=== PATIENT | male | born 1955 | race Hispanic/Latino ===

== ENCOUNTER 2021-07-07 02:25 | Emergency (ER) | payer MEDICAID ==
[~2021-07-07] VITALS: Ht 170.2 cm; Wt 56.7 kg
[~2021-07-07 02:25] MED LIST: ALPR0.255 PO; CARV6.2579 PO; CEPH500B PO; FURO40TA7 PO; HYDR25 PO; Isosorbide Mono 30MG Sr Tab PO; PANT40TA55 PO; POTA-9 PO; SPIR25TA6 PO; TRAZ-185 PO
[2021-07-07 02:52] VITALS: BP 131/95
[2021-07-07 03:32] LABS: BASOPHILS % (AUTO) 0.7 % (0.0-5.0); EOSINOPHILS % (AUTO) 1.2 % (0.0-8.0); HEMATOCRIT 37.4 % (42-54); LYMPHOCYTES % (AUTO) 44.6 % (21.0-51.0); MEAN CORPUSCULAR HEMOGLOBIN 30.6 pg (27.0-33.0); MEAN CORPUSCULAR HGB CONC 32.6 g/dL (32.0-36.0); MEAN CORPUSCULAR VOLUME 93.7 fL (79-99); MONOCYTES % (AUTO) 7.7 % (3.0-13.0); NEUTROPHILS % (AUTO) 45.5 % (40.0-77.0); PLATELET COUNT (AUTO) 140 K/uL (130-400); RED BLOOD CELL COUNT(AUTO) 3.99 MIL/uL (4.50-6.20); RED CELL DISTRIBUTION WIDTH 14.9 % (11.0-15.5); WHITE BLOOD COUNT (AUTO) 6.8 K/uL (4.8-10.8)
[2021-07-07 03:37] LABS: POTASSIUM 4.4 mmol/L (3.5-5.1)
[2021-07-07 03:49] LABS: ALBUMIN 3.2 g/dL (3.5-5.0); BILIRUBIN,TOTAL 0.6 mg/dL (0.2-1.0)
[2021-07-07 03:58] VITALS: BP 135/90
[2021-07-07 03:58] LABS: CREATININE 0.9 mg/dL (0.5-1.5)
[2021-07-07 04:04] LABS: B-TYPE NATRIURETIC PEPTIDE 3880 pg/mL (0-100)
[2021-07-07] MEDS ORDERED: LIDOCAINE HCL 2% VISCOUS 15 ML UDCUP ONE (04:06)
[2021-07-07] MEDS ORDERED: MAG/ALUM/SIMETH 30 ML UDCUP ONE (04:06)
[2021-07-07] MEDS ORDERED: FAMOTIDINE 20MG VIAL IV ONE (04:30)
[2021-07-07 05:09] VITALS: BP 123/92
[2021-07-07] MEDS ORDERED: FUROSEMIDE 40MG VIAL IV ONE (05:30)
[2021-07-08] MEDS ORDERED: ONDA4TAB10 PO (18:45)
[2021-07-08] MEDS ORDERED: FAMO-136 PO (18:45)
== END 2021-07-07 05:20 | disposition left against medical advice (07) ==
LOC: EDH 02:25
DX: I25.10 Atherosclerotic heart disease of native coronary artery without angina pectoris (principal); I50.9 Heart failure, unspecified; J90 Pleural effusion, not elsewhere classified; N28.9 Disorder of kidney and ureter, unspecified; E11.9 Type 2 diabetes mellitus without complications; Z95.0 Presence of cardiac pacemaker
CPT/HCPCS: 36415; 71045; 80053; 82550; 83880; 84484; 85025; 85730; 93005; 96374; 99285; S0028; J3490

== ENCOUNTER 2021-07-07 09:18 | Emergency (ER) | payer MEDICAID ==
[~2021-07-07] VITALS: Ht 167.6 cm; Wt 56.7 kg
[2021-07-07 09:25] VITALS: BP 146/112
[2021-07-07 09:53] LABS: EOSINOPHILS % (AUTO) 0.3 % (0.0-8.0); HEMATOCRIT 40.1 % (42-54); LYMPHOCYTES % (AUTO) 40.5 % (21.0-51.0); MEAN CORPUSCULAR HEMOGLOBIN 30.4 pg (27.0-33.0); MEAN CORPUSCULAR HGB CONC 32.2 g/dL (32.0-36.0); MEAN CORPUSCULAR VOLUME 94.4 fL (79-99); MONOCYTES % (AUTO) 7.4 % (3.0-13.0); NEUTROPHILS % (AUTO) 50.6 % (40.0-77.0); PLATELET COUNT (AUTO) 162 K/uL (130-400); RED BLOOD CELL COUNT(AUTO) 4.25 MIL/uL (4.50-6.20); RED CELL DISTRIBUTION WIDTH 15.2 % (11.0-15.5); WHITE BLOOD COUNT (AUTO) 6.1 K/uL (4.8-10.8)
[2021-07-07 10:05] LABS: CREATININE 1.2 mg/dL (0.5-1.5); POTASSIUM 4.1 mmol/L (3.5-5.1)
[2021-07-07 10:10] LABS: ALBUMIN 3.5 g/dL (3.5-5.0); BILIRUBIN,TOTAL 0.7 mg/dL (0.2-1.0); TOTAL PROTEIN, SERUM 8.9 g/dL (6.0-8.3)
[2021-07-07 10:16] LABS: APPEARANCE,URINE Clear (CLEAR); BILIRUBIN,URINE Small (NEGATIVE); COLOR,URINE Dark Yellow (YELLOW); GLUCOSE, URINE (UA) Negative (NEGATIVE); KETONES,URINE Trace mg/dL (NEGATIVE); LEUKOCYTE ESTERASE ,URINE Trace (NEGATIVE); NITRATE,URINE Negative (NEGATIVE); OCCULT BLOOD,URINE Trace (NEGATIVE); PH,URINE 5.5 (5.0-8.0); PROTEIN,URINE >=1000 mg/dL (NEGATIVE)
[2021-07-07 10:18] LABS: B-TYPE NATRIURETIC PEPTIDE 4220 pg/mL (0-100)
[2021-07-07 10:23] LABS: BACTERIA,URINE Few /HPF (None Seen); RBC,URINE 0-1 /HPF (0-1); SQUAMOUS EPITHELIAL CELL,UR None Seen /HPF (0-2)
[2021-07-07 10:30] VITALS: BP 136/96
[2021-07-07] MEDS ORDERED: FUROSEMIDE 40MG VIAL IV SCH (10:30)
[2021-07-07] MEDS ORDERED: FUROSEMIDE 40MG VIAL ONE (10:33)
[2021-07-08] MEDS ORDERED: FAMO-136 PO (18:45)
[2021-07-08] MEDS ORDERED: ONDA4TAB10 PO (18:45)
== END 2021-07-07 11:34 | disposition home or self-care (01) ==
LOC: EDH 09:18
DX: I11.0 Hypertensive heart disease with heart failure (principal); I50.9 Heart failure, unspecified; E78.5 Hyperlipidemia, unspecified; E11.9 Type 2 diabetes mellitus without complications; Z79.899 Other long term (current) drug therapy
CPT/HCPCS: 36415; 71045; 80053; 81001; 83880; 84484; 85025; 93005; 96374; 99285; J1940

== ENCOUNTER 2021-07-08 16:36 | Emergency (ER) | payer MEDICAID ==
[~2021-07-08] VITALS: Ht 172.7 cm; Wt 63.5 kg
[~2021-07-08 16:36] MED LIST changes: -ALPR0.255 PO; -CEPH500B PO; -FURO40TA7 PO; -PANT40TA55 PO; -POTA-9 PO; -TRAZ-185 PO
[2021-07-08 17:17] VITALS: BP 134/98
[2021-07-08] MEDS ORDERED: ONDANSETRON ODT 4MG TAB SL ONE (17:30)
[2021-07-08] MEDS ORDERED: FAMOTIDINE 20MG TAB PO ONE (17:30)
[2021-07-08] MEDS ORDERED: FAMO-136 PO (18:45)
[2021-07-08] MEDS ORDERED: ONDA4TAB10 PO (18:45)
[2021-07-08 18:56] VITALS: BP 129/96
== END 2021-07-08 18:58 | disposition home or self-care (01) ==
LOC: EDH 16:36
DX: R11.2 Nausea with vomiting, unspecified (principal); R10.84 Generalized abdominal pain; I11.0 Hypertensive heart disease with heart failure; I10 Essential (primary) hypertension; E11.9 Type 2 diabetes mellitus without complications; Z86.73 Personal history of transient ischemic attack (TIA), and cerebral infarction without residual deficits; E78.00 Pure hypercholesterolemia, unspecified; Z79.899 Other long term (current) drug therapy
CPT/HCPCS: 93005

== ENCOUNTER 2021-07-10 13:04 | Emergency (ER) | payer MEDICAID ==
[~2021-07-10] VITALS: Ht 170.2 cm; Wt 58.1 kg
[~2021-07-10 13:04] MED LIST changes: +FAMO-136 PO; +ONDA4TAB10 PO
[2021-07-10 13:06] VITALS: BP 120/93
[2021-07-10 13:07] VITALS: BP 120/93
== END 2021-07-10 14:53 | disposition home or self-care (01) ==
LOC: EDH 13:04
DX: I11.0 Hypertensive heart disease with heart failure (principal); I50.9 Heart failure, unspecified; F41.9 Anxiety disorder, unspecified; R06.02 Shortness of breath; E11.9 Type 2 diabetes mellitus without complications; E78.00 Pure hypercholesterolemia, unspecified; Z79.899 Other long term (current) drug therapy; Z86.73 Personal history of transient ischemic attack (TIA), and cerebral infarction without residual deficits
CPT/HCPCS: 99281

== ENCOUNTER 2021-07-13 01:33 | Inpatient (IN) | payer MEDICAID ==
[~2021-07-13] VITALS: Ht 170.2 cm; Wt 52.6 kg
[2021-07-13 02:05] VITALS: BP 122/92
[2021-07-13 02:24] LABS: ABG HCO3 22.8 mmol/L (21.0-28.0); ABG OXYGEN SATURATION 97.3 % (95.0-99.0); ABG PCO2 32 mmHg (35-48)
[2021-07-13 02:43] LABS: CARBON DIOXIDE 26 mmol/L (21-32); CHLORIDE 103 mmol/L (101-111); CREATININE 1.2 mg/dL (0.5-1.5); GLOMERULAR FILTR. RATE CALC 64 mL/min (>60); GLUCOSE,RANDOM 110 mg/dL (70-105); POTASSIUM 3.6 mmol/L (3.5-5.1); SODIUM SERUM 140 mmol/L (136-145); UREA NITROGEN, BLOOD 17 mg/dL (7-18)
[2021-07-13 02:47] LABS: ALANINE AMINOTRANSFERASE 47 U/L (12-78); ALBUMIN 2.9 g/dL (3.5-5.0); ASPARTATE AMINOTRANSFERASE 42 U/L (10-37); BILIRUBIN,TOTAL 0.7 mg/dL (0.2-1.0); CREATINE KINASE, TOTAL 45 U/L (21-232); TOTAL PROTEIN, SERUM 7.4 g/dL (6.0-8.3)
[2021-07-13 02:48] LABS: CRP QUANTITATIVE < 2.00 mg/L (0.00-9.0)
[2021-07-13 02:51] LABS: APPEARANCE,URINE Clear (CLEAR); BILIRUBIN,URINE Negative (NEGATIVE); GLUCOSE, URINE (UA) Negative (NEGATIVE); KETONES,URINE Trace mg/dL (NEGATIVE); LEUKOCYTE ESTERASE ,URINE Trace (NEGATIVE); NITRATE,URINE Negative (NEGATIVE); OCCULT BLOOD,URINE Negative (NEGATIVE); PROTEIN,URINE 300 mg/dL (NEGATIVE)
[2021-07-13 02:52] LABS: COLOR,URINE YELLOW (YELLOW)
[2021-07-13 02:59] LABS: BACTERIA,URINE Rare /HPF (None Seen); RBC,URINE 0-1 /HPF (0-1); SQUAMOUS EPITHELIAL CELL,UR None Seen /HPF (0-2)
[2021-07-13] MEDS ORDERED: BUMETANIDE 1MG/4ML VIAL IVP SCH (04:00)
[2021-07-13] MEDS ORDERED: ONDANSETRON 4MG INJ IV PRN (05:00)
[2021-07-13] MEDS ORDERED: MORPHINE 4 MG SYG IV PRN (05:00)
[2021-07-13 05:05] LABS: BASOPHILS % (AUTO) 0.6 % (0.0-5.0); EOSINOPHILS % (AUTO) 1.1 % (0.0-8.0); HEMATOCRIT 35.2 % (42-54); LYMPHOCYTES % (AUTO) 38.8 % (21.0-51.0); MEAN CORPUSCULAR HEMOGLOBIN 30.9 pg (27.0-33.0); MEAN CORPUSCULAR HGB CONC 33.2 g/dL (32.0-36.0); MEAN CORPUSCULAR VOLUME 92.9 fL (79-99); MONOCYTES % (AUTO) 6.3 % (3.0-13.0); PLATELET COUNT (AUTO) 123 K/uL (130-400); RED BLOOD CELL COUNT(AUTO) 3.79 MIL/uL (4.50-6.20); RED CELL DISTRIBUTION WIDTH 15.5 % (11.0-15.5); WHITE BLOOD COUNT (AUTO) 6.2 K/uL (4.8-10.8)
[2021-07-13] MEDS: INSULIN HUMULIN R 100 UNIT/ML 3ML SQ SCH ×4 (07:30→21:00)
[2021-07-13 08:35] VITALS: BP 138/98
[2021-07-13 08:55] VITALS: BP 128/91
[2021-07-13 09:56] LABS: CREATININE 1.3 mg/dL (0.5-1.5); POTASSIUM 3.8 mmol/L (3.5-5.1)
[2021-07-13] MEDS: HYDRALAZINE 25MG TABLET PO SCH ×3 (10:08→22:16)
[2021-07-13] MEDS: FAMOTIDINE 20MG TAB PO SCH ×2 (10:08→22:12)
[2021-07-13] MEDS: ISOSORBIDE MONO 30MG SR TAB PO SCH (10:08)
[2021-07-13] MEDS: SPIRONOLACTONE 25 MG TAB PO SCH (10:08)
[2021-07-13] MEDS: LISINOPRIL 10 MG TABLET PO SCH (10:09)
[2021-07-13] MEDS: BUMETANIDE 1MG/4ML VIAL IVP SCH ×2 (10:10→22:12)
[2021-07-13] MEDS: CARVEDILOL 6.25 MG TABLET PO SCH ×2 (10:10→22:12)
[2021-07-13 12:00] VITALS: BP 125/92
[2021-07-13 16:00] VITALS: BP 112/56
[2021-07-13 20:20] VITALS: BP 104/71
[2021-07-13 20:52] LABS: COLOR,BODY FLUID YELLOW (LT YELLOW); SPECIMENTYPE,BODY FLUID PLEURAL
[2021-07-13 20:53] LABS: APPEARANCE BODY FLUID CLEAR (CLEAR); BODY FLUID RBC 39 /cu. mm.; BODY FLUID WBC 48 /cu. mm.; TOTAL VOLUME,BODY FLUID 23 mL
[2021-07-13 21:13] LABS: BF BASOPHIL 1 %; BF LYMPHOCYTE 57 %; BF MESOTHELIAL 11 %; BF MONOCYTE 4 %
[2021-07-14] VITALS (8 sets, daily range): BP systolic 90–114; BP diastolic 50–79
[2021-07-14 04:18] LABS: BASOPHILS % (AUTO) 0.5 % (0.0-5.0); EOSINOPHILS % (AUTO) 1.4 % (0.0-8.0); HEMATOCRIT 31.1 % (42-54); LYMPHOCYTES % (AUTO) 34.8 % (21.0-51.0); MEAN CORPUSCULAR HEMOGLOBIN 30.4 pg (27.0-33.0); MEAN CORPUSCULAR HGB CONC 32.5 g/dL (32.0-36.0); MEAN CORPUSCULAR VOLUME 93.7 fL (79-99); NEUTROPHILS % (AUTO) 56.9 % (40.0-77.0); PLATELET COUNT (AUTO) 122 K/uL (130-400); RED BLOOD CELL COUNT(AUTO) 3.32 MIL/uL (4.50-6.20); RED CELL DISTRIBUTION WIDTH 15.3 % (11.0-15.5); WHITE BLOOD COUNT (AUTO) 5.5 K/uL (4.8-10.8)
[2021-07-14 04:33] LABS: CREATININE 1.4 mg/dL (0.5-1.5); MAGNESIUM 1.7 mg/dL (1.80-2.40); PHOSPHORUS 3.9 mg/dL (2.5-4.9); POTASSIUM 3.7 mmol/L (3.5-5.1); TOTAL PROTEIN, SERUM 6.3 g/dL (6.0-8.3)
[2021-07-14] MEDS: INSULIN HUMULIN R 100 UNIT/ML 3ML SQ SCH ×4 (05:49→21:00)
[2021-07-14] MEDS ORDERED: MAGNESIUM 2GM PREMIX 50ML 50 ML IV SCH (08:30)
[2021-07-14] MEDS ORDERED: KCL 20 MEQ ERTAB PO SCH (08:30)
[2021-07-14] MEDS: SPIRONOLACTONE 25 MG TAB PO SCH (09:31)
[2021-07-14] MEDS: BUMETANIDE 1MG/4ML VIAL IVP SCH (09:31)
[2021-07-14] MEDS: FAMOTIDINE 20MG TAB PO SCH ×2 (09:32→21:31)
[2021-07-14] MEDS: ISOSORBIDE MONO 30MG SR TAB PO SCH (09:32)
[2021-07-14] MEDS: CARVEDILOL 6.25 MG TABLET PO SCH ×2 (09:33→21:31)
[2021-07-14] MEDS: LISINOPRIL 10 MG TABLET PO SCH (09:33)
[2021-07-14] MEDS: FUROSEMIDE 40 MG TABLET PO SCH (18:30)
[2021-07-15 03:08] VITALS: BP 107/67
[2021-07-15] MEDS: INSULIN HUMULIN R 100 UNIT/ML 3ML SQ SCH ×4 (06:33→20:32)
[2021-07-15 06:52] LABS: BASOPHILS % (AUTO) 0.6 % (0.0-5.0); EOSINOPHILS % (AUTO) 1.3 % (0.0-8.0); HEMATOCRIT 32.7 % (42-54); LYMPHOCYTES % (AUTO) 42.4 % (21.0-51.0); MEAN CORPUSCULAR HEMOGLOBIN 30.4 pg (27.0-33.0); MEAN CORPUSCULAR HGB CONC 33.3 g/dL (32.0-36.0); MEAN CORPUSCULAR VOLUME 91.3 fL (79-99); NEUTROPHILS % (AUTO) 46.5 % (40.0-77.0); PLATELET COUNT (AUTO) 137 K/uL (130-400); RED BLOOD CELL COUNT(AUTO) 3.58 MIL/uL (4.50-6.20); WHITE BLOOD COUNT (AUTO) 5.2 K/uL (4.8-10.8)
[2021-07-15 07:08] LABS: CREATININE 1.5 mg/dL (0.5-1.5); MAGNESIUM 1.9 mg/dL (1.80-2.40); POTASSIUM 4.2 mmol/L (3.5-5.1)
[2021-07-15 07:55] VITALS: BP 128/81
[2021-07-15] MEDS: FUROSEMIDE 40 MG TABLET PO SCH ×2 (08:46→16:39)
[2021-07-15] MEDS: ISOSORBIDE MONO 30MG SR TAB PO SCH (08:48)
[2021-07-15] MEDS: CARVEDILOL 6.25 MG TABLET PO SCH ×2 (08:48→20:35)
[2021-07-15] MEDS: SPIRONOLACTONE 25 MG TAB PO SCH (08:48)
[2021-07-15] MEDS: FAMOTIDINE 20MG TAB PO SCH ×2 (08:49→20:35)
[2021-07-15] MEDS: LISINOPRIL 10 MG TABLET PO SCH (08:51)
[2021-07-15 11:45] VITALS: BP 117/76
[2021-07-15 15:45] VITALS: BP 113/73
[2021-07-15 20:04] VITALS: BP 121/78
[2021-07-15] MEDS: LACTULOSE 20 GM/30 ML UDCUP PO SCH (20:38)
[2021-07-16 00:16] VITALS: BP 107/76
[2021-07-16 04:00] VITALS: BP 106/73
[2021-07-16] MEDS: INSULIN HUMULIN R 100 UNIT/ML 3ML SQ SCH (05:36)
[2021-07-16] MEDS: ISOSORBIDE MONO 30MG SR TAB PO SCH (07:44)
[2021-07-16] MEDS: LISINOPRIL 10 MG TABLET PO SCH (07:44)
[2021-07-16] MEDS: FUROSEMIDE 40 MG TABLET PO SCH (07:44)
[2021-07-16] MEDS: SPIRONOLACTONE 25 MG TAB PO SCH (07:44)
[2021-07-16] MEDS: FAMOTIDINE 20MG TAB PO SCH (07:45)
[2021-07-16 08:00] VITALS: BP 125/89
[2021-07-16] MEDS: LACTULOSE 20 GM/30 ML UDCUP PO SCH (09:00)
[2021-07-16] MEDS: CARVEDILOL 6.25 MG TABLET PO SCH (10:34)
[2021-07-16] MEDS ORDERED: FURO40TA7 PO (10:46)
[2021-07-16 12:00] VITALS: BP 126/81
== END 2021-07-16 13:00 | disposition home or self-care (01) | DRG 194 ==
LOC: EDH 01:33 → EDHIP 04:37 → 4CH 09:16
PROVIDERS: ADMIT Internal Medicine; ATTEND Internal Medicine
PROC: 0W993ZZ Drainage of Right Pleural Cavity, Percutaneous Approach (ICD-10-PCS; principal; 2021-07-13)
DX: I11.0 Hypertensive heart disease with heart failure (principal); I42.9 Cardiomyopathy, unspecified; E11.9 Type 2 diabetes mellitus without complications; I50.43 Acute on chronic combined systolic (congestive) and diastolic (congestive) heart failure; E78.5 Hyperlipidemia, unspecified; E78.00 Pure hypercholesterolemia, unspecified; Z87.891 Personal history of nicotine dependence; Z88.8 Allergy status to other drugs, medicaments and biological substances; I25.2 Old myocardial infarction; Z79.899 Other long term (current) drug therapy; Z83.3 Family history of diabetes mellitus; Z82.49 Family history of ischemic heart disease and other diseases of the circulatory system
CPT/HCPCS: 36415; 36600; 71045; 80048; 80053; 81001; 82550; 82803; 82945; 82948; 83615; 83735; 83880; 83986; 84100; 84155; 84157; 84484; 85025; 86140; 87071; 87205; 87635; 89051; 93005; 99281; C1729; C9803; G0378; J3475; J3490

== ENCOUNTER 2021-07-29 20:54 | Inpatient (IN) | payer MEDICAID ==
[~2021-07-29] VITALS: Ht 170.2 cm; Wt 54.9 kg
[~2021-07-29 20:54] MED LIST changes: +FURO40TA7 PO; -ONDA4TAB10 PO
[2021-07-29 21:43] LABS: BASOPHILS % (AUTO) 0.8 % (0.0-5.0); EOSINOPHILS % (AUTO) 0.8 % (0.0-8.0); HEMATOCRIT 35.6 % (42-54); LYMPHOCYTES % (AUTO) 49.3 % (21.0-51.0); MEAN CORPUSCULAR HEMOGLOBIN 30.3 pg (27.0-33.0); MEAN CORPUSCULAR HGB CONC 32.9 g/dL (32.0-36.0); MEAN CORPUSCULAR VOLUME 92.2 fL (79-99); MONOCYTES % (AUTO) 7.2 % (3.0-13.0); NEUTROPHILS % (AUTO) 41.7 % (40.0-77.0); PLATELET COUNT (AUTO) 161 K/uL (130-400); RED BLOOD CELL COUNT(AUTO) 3.86 MIL/uL (4.50-6.20); RED CELL DISTRIBUTION WIDTH 16.6 % (11.0-15.5)
[2021-07-29 21:54] LABS: CREATININE 1.3 mg/dL (0.5-1.5); POTASSIUM 4.5 mmol/L (3.5-5.1)
[2021-07-29 21:58] LABS: ALBUMIN 3.5 g/dL (3.5-5.0); BILIRUBIN,TOTAL 0.6 mg/dL (0.2-1.0); TOTAL PROTEIN, SERUM 8.7 g/dL (6.0-8.3)
[2021-07-29] MEDS ORDERED: NITROGLYCERIN 1GM OINT 1 INCH/1GM TD SCH (23:00)
[2021-07-29] MEDS ORDERED: ONDANSETRON 4MG INJ IV PRN (23:00)
[2021-07-30 00:15] VITALS: BP 118/83
[2021-07-30] MEDS ORDERED: INSULIN HUMULIN R 100 UNIT/ML 3ML SQ SCH (07:30)
[2021-07-30] MEDS ORDERED: HYDRALAZINE 25MG TABLET PO SCH (09:00)
[2021-07-30] MEDS ORDERED: ISOSORBIDE MONO 30MG SR TAB PO SCH (09:00)
[2021-07-30] MEDS ORDERED: LISINOPRIL 10 MG TABLET PO SCH (09:00)
[2021-07-30] MEDS ORDERED: BUMETANIDE 1MG/4ML VIAL IVP SCH (09:00)
[2021-07-30] MEDS ORDERED: SPIRONOLACTONE 25 MG TAB PO SCH (09:00)
[2021-07-30] MEDS ORDERED: FAMOTIDINE 20MG TAB PO SCH (09:00)
== END 2021-07-30 00:45 | disposition left against medical advice (07) | DRG 194 ==
LOC: EDH 20:54 → EDHIP 20:55 → UNDOADMIN 22:55 → EDHIP 22:55 → UNDODEPER 07-30 02:34
PROVIDERS: ADMIT Internal Medicine; ATTEND Internal Medicine
DX: I11.0 Hypertensive heart disease with heart failure (principal); E11.9 Type 2 diabetes mellitus without complications; I50.9 Heart failure, unspecified; E78.5 Hyperlipidemia, unspecified; E78.00 Pure hypercholesterolemia, unspecified; I25.2 Old myocardial infarction; Z87.891 Personal history of nicotine dependence; Z83.3 Family history of diabetes mellitus; Z82.49 Family history of ischemic heart disease and other diseases of the circulatory system
CPT/HCPCS: 36415; 71045; 80053; 82150; 82550; 83690; 83735; 83880; 84484; 85025; 93005; G0378

== ENCOUNTER 2021-07-30 16:08 | Emergency (ER) | payer MEDICAID ==
[~2021-07-30] VITALS: Ht 167.6 cm; Wt 55.3 kg
[2021-07-30 16:12] VITALS: BP 132/93
[2021-07-30 17:01] LABS: BASOPHILS % (AUTO) 1.1 % (0.0-5.0); EOSINOPHILS % (AUTO) 0.6 % (0.0-8.0); HEMATOCRIT 36.8 % (42-54); LYMPHOCYTES % (AUTO) 48.8 % (21.0-51.0); MEAN CORPUSCULAR HGB CONC 32.6 g/dL (32.0-36.0); MONOCYTES % (AUTO) 7.3 % (3.0-13.0); NEUTROPHILS % (AUTO) 41.9 % (40.0-77.0); PLATELET COUNT (AUTO) 178 K/uL (130-400); RED CELL DISTRIBUTION WIDTH 16.8 % (11.0-15.5); WHITE BLOOD COUNT (AUTO) 6.3 K/uL (4.8-10.8)
[2021-07-30 17:11] LABS: CARBON DIOXIDE 27 mmol/L (21-32); CHLORIDE 99 mmol/L (101-111); CREATININE 1.3 mg/dL (0.5-1.5); GLOMERULAR FILTR. RATE CALC 58 mL/min (>60); GLUCOSE,RANDOM 114 mg/dL (70-105); POTASSIUM 4.9 mmol/L (3.5-5.1); SODIUM SERUM 135 mmol/L (136-145); UREA NITROGEN, BLOOD 30 mg/dL (7-18)
[2021-07-30 17:15] LABS: ALANINE AMINOTRANSFERASE 53 U/L (12-78); ALBUMIN 3.6 g/dL (3.5-5.0); ASPARTATE AMINOTRANSFERASE 44 U/L (10-37); BILIRUBIN,TOTAL 0.9 mg/dL (0.2-1.0); LIPASE 114 U/L (114-286); TOTAL PROTEIN, SERUM 9.1 g/dL (6.0-8.3)
[2021-07-30 17:16] LABS: CRP QUANTITATIVE < 2.00 mg/L (0.00-9.0)
[2021-07-30] MEDS ORDERED: FUROSEMIDE 40MG VIAL IV ONE (17:30)
[2021-07-30] MEDS ORDERED: AZITHROMYCIN 250 MG TABLET PO ONE (17:30)
[2021-07-30] MEDS ORDERED: CEFTRIAXONE 1G VIAL IVP ONE (17:30)
[2021-07-30 17:33] LABS: B-TYPE NATRIURETIC PEPTIDE 2710 pg/mL (0-100)
== END 2021-07-30 18:08 | disposition left against medical advice (07) ==
LOC: EDH 16:08
DX: J90 Pleural effusion, not elsewhere classified (principal); I11.0 Hypertensive heart disease with heart failure; I50.9 Heart failure, unspecified; I25.10 Atherosclerotic heart disease of native coronary artery without angina pectoris; R06.00 Dyspnea, unspecified; E78.00 Pure hypercholesterolemia, unspecified; E11.9 Type 2 diabetes mellitus without complications; J44.9 Chronic obstructive pulmonary disease, unspecified; Z79.899 Other long term (current) drug therapy; Z90.49 Acquired absence of other specified parts of digestive tract
CPT/HCPCS: 36415; 71045; 80053; 83690; 83880; 84484; 85025; 86140; 93005

== ENCOUNTER 2021-08-06 11:39 | Inpatient (IN) | payer MEDICAID ==
[~2021-08-06] VITALS: Ht 170.2 cm; Wt 58.1 kg
[2021-08-06 12:13] LABS: EOSINOPHILS % (AUTO) 0.3 % (0.0-8.0); HEMATOCRIT 34.4 % (42-54); LYMPHOCYTES % (AUTO) 31.5 % (21.0-51.0); MEAN CORPUSCULAR HEMOGLOBIN 29.4 pg (27.0-33.0); MEAN CORPUSCULAR HGB CONC 32.3 g/dL (32.0-36.0); MONOCYTES % (AUTO) 8.3 % (3.0-13.0); NEUTROPHILS % (AUTO) 58.7 % (40.0-77.0); PLATELET COUNT (AUTO) 192 K/uL (130-400); RED BLOOD CELL COUNT(AUTO) 3.78 MIL/uL (4.50-6.20); RED CELL DISTRIBUTION WIDTH 16.8 % (11.0-15.5); WHITE BLOOD COUNT (AUTO) 6.2 K/uL (4.8-10.8)
[2021-08-06 12:27] LABS: CREATININE 1.4 mg/dL (0.5-1.5); POTASSIUM 4.3 mmol/L (3.5-5.1)
[2021-08-06 12:32] LABS: ALBUMIN 3.3 g/dL (3.5-5.0); TOTAL PROTEIN, SERUM 8.2 g/dL (6.0-8.3)
[2021-08-06 12:40] LABS: B-TYPE NATRIURETIC PEPTIDE > 5000 pg/mL (0-100)
[2021-08-06] MEDS ORDERED: HYDROCODONE/ACETAMINOPHEN 5/325 MG TAB PO PRN (15:00)
[2021-08-06] MEDS ORDERED: ONDANSETRON 4MG INJ IV PRN (15:00)
[2021-08-06] MEDS ORDERED: NITROGLYCERIN 0.4 MG SL TAB SL PRN (15:00)
[2021-08-06] MEDS ORDERED: GUAIFENESIN-DM 200/20 MG 10 ML PO PRN (15:00)
[2021-08-06] MEDS ORDERED: HYDRALAZINE 20MG/ML VIAL IV PRN (15:00)
[2021-08-06] MEDS ORDERED: ACETAMINOPHEN 325 MG TAB PO PRN (15:00)
[2021-08-06] MEDS ORDERED: 0.9%NACL 100ML 200 ML ONE (15:46)
[2021-08-06] MEDS: FUROSEMIDE 40MG VIAL IV SCH (15:49)
[2021-08-06] MEDS: ZOSYN 3.375GM+NS 50ML 50 ML IV SCH ×2 (15:49→23:40)
[2021-08-06] MEDS: HYDRALAZINE 25MG TABLET PO SCH (21:58)
[2021-08-06] MEDS: FAMOTIDINE 20MG TAB PO SCH (21:58)
[2021-08-06] MEDS: CARVEDILOL 6.25 MG TABLET PO SCH (22:23)
[2021-08-07] VITALS (7 sets, daily range): BP systolic 91–127; BP diastolic 60–83
[2021-08-07] MEDS: FUROSEMIDE 40MG VIAL IV SCH (03:38)
[2021-08-07 06:08] LABS: BASOPHILS % (AUTO) 0.8 % (0.0-5.0); HEMATOCRIT 31.7 % (42-54); MEAN CORPUSCULAR HEMOGLOBIN 28.9 pg (27.0-33.0); MEAN CORPUSCULAR HGB CONC 32.5 g/dL (32.0-36.0); MEAN CORPUSCULAR VOLUME 88.8 fL (79-99); MONOCYTES % (AUTO) 7.8 % (3.0-13.0); NEUTROPHILS % (AUTO) 66.9 % (40.0-77.0); PLATELET COUNT (AUTO) 178 K/uL (130-400); RED BLOOD CELL COUNT(AUTO) 3.57 MIL/uL (4.50-6.20); RED CELL DISTRIBUTION WIDTH 16.9 % (11.0-15.5); WHITE BLOOD COUNT (AUTO) 6.6 K/uL (4.8-10.8)
[2021-08-07 06:14] LABS: B-TYPE NATRIURETIC PEPTIDE > 5000 pg/mL (0-100)
[2021-08-07 06:19] LABS: ALBUMIN 3.2 g/dL (3.5-5.0); BILIRUBIN,TOTAL 1.6 mg/dL (0.2-1.0); CREATININE 1.6 mg/dL (0.5-1.5); POTASSIUM 4.3 mmol/L (3.5-5.1); TOTAL PROTEIN, SERUM 7.9 g/dL (6.0-8.3)
[2021-08-07] MEDS: HYDRALAZINE 25MG TABLET PO SCH ×3 (09:08→20:34)
[2021-08-07] MEDS: ENOXAPARIN SODIUM 40 MG/0.4 ML SYRINGE SQ SCH (09:09)
[2021-08-07] MEDS: CARVEDILOL 6.25 MG TABLET PO SCH ×2 (09:09→20:34)
[2021-08-07] MEDS: ISOSORBIDE MONO 30MG SR TAB PO SCH (09:09)
[2021-08-07] MEDS: SPIRONOLACTONE 25 MG TAB PO SCH (09:10)
[2021-08-07] MEDS: ZOSYN 3.375GM+NS 50ML 50 ML IV SCH ×2 (13:09→20:29)
[2021-08-07] MEDS: FAMOTIDINE 20MG TAB PO SCH (20:34)
[2021-08-08 03:41] VITALS: BP 111/73
[2021-08-08] MEDS: ZOSYN 3.375GM+NS 50ML 50 ML IV SCH ×3 (04:38→20:50)
[2021-08-08 04:42] LABS: BASOPHILS % (AUTO) 0.8 % (0.0-5.0); EOSINOPHILS % (AUTO) 0.3 % (0.0-8.0); HEMATOCRIT 31.3 % (42-54); LYMPHOCYTES % (AUTO) 27.3 % (21.0-51.0); MEAN CORPUSCULAR HEMOGLOBIN 29.1 pg (27.0-33.0); MEAN CORPUSCULAR HGB CONC 32.6 g/dL (32.0-36.0); MEAN CORPUSCULAR VOLUME 89.4 fL (79-99); MONOCYTES % (AUTO) 10.4 % (3.0-13.0); NEUTROPHILS % (AUTO) 60.9 % (40.0-77.0); PLATELET COUNT (AUTO) 170 K/uL (130-400); RED CELL DISTRIBUTION WIDTH 16.9 % (11.0-15.5); WHITE BLOOD COUNT (AUTO) 7.2 K/uL (4.8-10.8)
[2021-08-08 05:03] LABS: ALBUMIN 2.9 g/dL (3.5-5.0); BILIRUBIN,TOTAL 1.4 mg/dL (0.2-1.0); CREATININE 1.6 mg/dL (0.5-1.5); POTASSIUM 3.9 mmol/L (3.5-5.1); TOTAL PROTEIN, SERUM 7.3 g/dL (6.0-8.3)
[2021-08-08 08:02] VITALS: BP 115/86
[2021-08-08] MEDS: CARVEDILOL 6.25 MG TABLET PO SCH ×2 (10:10→20:52)
[2021-08-08] MEDS: ENOXAPARIN SODIUM 40 MG/0.4 ML SYRINGE SQ SCH (10:10)
[2021-08-08] MEDS: ISOSORBIDE MONO 30MG SR TAB PO SCH (10:10)
[2021-08-08] MEDS: SPIRONOLACTONE 25 MG TAB PO SCH (10:10)
[2021-08-08] MEDS: HYDRALAZINE 25MG TABLET PO SCH ×3 (10:11→20:51)
[2021-08-08 11:23] VITALS: BP 113/65
[2021-08-08] MEDS: FUROSEMIDE 40MG VIAL IV SCH ×2 (12:40)
[2021-08-08 15:42] VITALS: BP 100/66
[2021-08-08 20:04] VITALS: BP 106/76
[2021-08-08] MEDS: FAMOTIDINE 20MG TAB PO SCH (20:51)
[2021-08-08 23:15] VITALS: BP 90/56
[2021-08-09] MEDS ORDERED: MIDODRINE HCL 5 MG TABLET PO SCH ×2 (00:50→09:00)
[2021-08-09] MEDS: FUROSEMIDE 40MG VIAL IV SCH (00:55)
[2021-08-09 03:42] VITALS: BP 101/67
[2021-08-09] MEDS: ZOSYN 3.375GM+NS 50ML 50 ML IV SCH (04:37)
[2021-08-09 05:13] LABS: BASOPHILS % (AUTO) 0.9 % (0.0-5.0); HEMATOCRIT 31.1 % (42-54); LYMPHOCYTES % (AUTO) 33.1 % (21.0-51.0); MEAN CORPUSCULAR HEMOGLOBIN 28.7 pg (27.0-33.0); MEAN CORPUSCULAR HGB CONC 31.8 g/dL (32.0-36.0); MEAN CORPUSCULAR VOLUME 90.1 fL (79-99); MONOCYTES % (AUTO) 12.3 % (3.0-13.0); NEUTROPHILS % (AUTO) 52.4 % (40.0-77.0); PLATELET COUNT (AUTO) 167 K/uL (130-400); RED BLOOD CELL COUNT(AUTO) 3.45 MIL/uL (4.50-6.20); RED CELL DISTRIBUTION WIDTH 16.8 % (11.0-15.5); WHITE BLOOD COUNT (AUTO) 5.8 K/uL (4.8-10.8)
[2021-08-09 05:37] LABS: ALBUMIN 2.6 g/dL (3.5-5.0); BILIRUBIN,TOTAL 0.6 mg/dL (0.2-1.0); CREATININE 1.7 mg/dL (0.5-1.5); POTASSIUM 3.3 mmol/L (3.5-5.1); TOTAL PROTEIN, SERUM 7.1 g/dL (6.0-8.3)
[2021-08-09 08:00] VITALS: BP 114/85
[2021-08-09] MEDS ORDERED: KCL 20 MEQ ERTAB PO SCH (10:00)
[2021-08-09 10:04] VITALS: BP 114/83
[2021-08-09] MEDS: CARVEDILOL 6.25 MG TABLET PO SCH (10:04)
[2021-08-09] MEDS: ISOSORBIDE MONO 30MG SR TAB PO SCH (10:04)
[2021-08-09] MEDS: SPIRONOLACTONE 25 MG TAB PO SCH (10:04)
[2021-08-09] MEDS: HYDRALAZINE 25MG TABLET PO SCH (10:05)
[2021-08-09] MEDS: ENOXAPARIN SODIUM 40 MG/0.4 ML SYRINGE SQ SCH (10:06)
[2021-08-09] MEDS ORDERED: FUROSEMIDE 40 MG TABLET PO SCH (17:00)
[2021-08-20] MEDS ORDERED: HYDR25 PO (15:54)
== END 2021-08-09 10:16 | disposition left against medical advice (07) | DRG 194 ==
LOC: EDH 11:39 → EDHIP 11:40 → 4CH 08-07 02:12
PROVIDERS: ADMIT Hospitalist; ATTEND Hospitalist
PROC: 4B02XSZ Measurement of Cardiac Pacemaker, External Approach (ICD-10-PCS; principal; 2021-08-07)
DX: I11.0 Hypertensive heart disease with heart failure (principal); J96.91 Respiratory failure, unspecified with hypoxia; Z99.81 Dependence on supplemental oxygen; J44.9 Chronic obstructive pulmonary disease, unspecified; I50.43 Acute on chronic combined systolic (congestive) and diastolic (congestive) heart failure; E78.00 Pure hypercholesterolemia, unspecified; E11.9 Type 2 diabetes mellitus without complications; I25.10 Atherosclerotic heart disease of native coronary artery without angina pectoris; E78.5 Hyperlipidemia, unspecified; R53.81 Other malaise; I25.5 Ischemic cardiomyopathy; Z95.0 Presence of cardiac pacemaker; Z79.899 Other long term (current) drug therapy; Z83.3 Family history of diabetes mellitus; Z82.49 Family history of ischemic heart disease and other diseases of the circulatory system
CPT/HCPCS: 36415; 71045; 80053; 82550; 82948; 83880; 84145; 84484; 85025; 93005; 93306; G0378; J1650; J1940; J2543

== ENCOUNTER 2021-08-15 00:14 | Emergency (ER) | payer MEDICAID ==
[~2021-08-15] VITALS: Ht 157.5 cm; Wt 54.4 kg
[2021-08-15 01:12] VITALS: BP 110/94
[2021-08-15 01:45] LABS: BASOPHILS % (AUTO) 0.8 % (0.0-5.0); EOSINOPHILS % (AUTO) 0.4 % (0.0-8.0); HEMATOCRIT 34.9 % (42-54); LYMPHOCYTES % (AUTO) 35.2 % (21.0-51.0); MEAN CORPUSCULAR HEMOGLOBIN 29.1 pg (27.0-33.0); MEAN CORPUSCULAR HGB CONC 31.8 g/dL (32.0-36.0); MEAN CORPUSCULAR VOLUME 91.6 fL (79-99); MONOCYTES % (AUTO) 7.8 % (3.0-13.0); NEUTROPHILS % (AUTO) 55.4 % (40.0-77.0); PLATELET COUNT (AUTO) 200 K/uL (130-400); RED BLOOD CELL COUNT(AUTO) 3.81 MIL/uL (4.50-6.20); RED CELL DISTRIBUTION WIDTH 17.2 % (11.0-15.5); WHITE BLOOD COUNT (AUTO) 7.8 K/uL (4.8-10.8)
[2021-08-15 01:57] LABS: CREATININE 1.3 mg/dL (0.5-1.5); POTASSIUM 4.7 mmol/L (3.5-5.1)
[2021-08-15 01:58] LABS: INR 1.21 (0.85-1.15)
[2021-08-15 01:59] LABS: PARTIAL THROMBOPLASTIN TIME 24.8 SEC (26.3-35.5)
[2021-08-15 02:01] LABS: ALBUMIN 3.4 g/dL (3.5-5.0); BILIRUBIN,TOTAL 0.9 mg/dL (0.2-1.0); MAGNESIUM 2.4 mg/dL (1.80-2.40); TOTAL PROTEIN, SERUM 8.7 g/dL (6.0-8.3)
[2021-08-15 02:27] LABS: B-TYPE NATRIURETIC PEPTIDE 4320 pg/mL (0-100)
[2021-08-15] MEDS ORDERED: FUROSEMIDE 40 MG TABLET PO ONE (04:00)
== END 2021-08-15 04:02 | disposition left against medical advice (07) ==
LOC: EDH 00:14
DX: J90 Pleural effusion, not elsewhere classified (principal); I50.9 Heart failure, unspecified; R06.00 Dyspnea, unspecified; F41.9 Anxiety disorder, unspecified; Z79.899 Other long term (current) drug therapy; Z90.49 Acquired absence of other specified parts of digestive tract; Z91.14 Patient's other noncompliance with medication regimen; Z91.19 Patient's noncompliance with other medical treatment and regimen
CPT/HCPCS: 36415; 71045; 80053; 82550; 83735; 83880; 84484; 85025; 85610; 85730; 93005

== ENCOUNTER 2021-08-16 19:35 | Inpatient (IN) | payer MEDICAID ==
[~2021-08-16] VITALS: Ht 162.6 cm; Wt 52.3 kg
[2021-08-16 20:41] LABS: BASOPHILS % (AUTO) 0.9 % (0.0-5.0); EOSINOPHILS % (AUTO) 0.5 % (0.0-8.0); HEMATOCRIT 36.8 % (42-54); LYMPHOCYTES % (AUTO) 33.4 % (21.0-51.0); MEAN CORPUSCULAR HGB CONC 31.8 g/dL (32.0-36.0); MEAN CORPUSCULAR VOLUME 91.1 fL (79-99); MONOCYTES % (AUTO) 7.1 % (3.0-13.0); NEUTROPHILS % (AUTO) 57.6 % (40.0-77.0); PLATELET COUNT (AUTO) 213 K/uL (130-400); RED BLOOD CELL COUNT(AUTO) 4.04 MIL/uL (4.50-6.20); RED CELL DISTRIBUTION WIDTH 17.3 % (11.0-15.5); WHITE BLOOD COUNT (AUTO) 7.9 K/uL (4.8-10.8)
[2021-08-16 21:00] LABS: ALBUMIN 3.6 g/dL (3.5-5.0); BILIRUBIN,TOTAL 0.9 mg/dL (0.2-1.0); CREATININE 1.3 mg/dL (0.5-1.5); POTASSIUM 5.2 mmol/L (3.5-5.1); TOTAL PROTEIN, SERUM 9.2 g/dL (6.0-8.3)
[2021-08-16 21:01] LABS: B-TYPE NATRIURETIC PEPTIDE 4610 pg/mL (0-100)
[2021-08-16] MEDS ORDERED: ONDANSETRON 4MG INJ IV PRN (23:00)
[2021-08-16] MEDS ORDERED: FUROSEMIDE 40MG VIAL IV ONE (23:00)
[2021-08-16] MEDS ORDERED: ACETAMINOPHEN 325 MG TAB PO PRN ×2 (23:00)
[2021-08-16] MEDS ORDERED: NITROGLYCERIN 0.4 MG SL TAB SL PRN (23:00)
[2021-08-16] MEDS ORDERED: DEXTROSE 50%-WATER 50 ML DISP.SYRIN IV PRN (23:00)
[2021-08-16] MEDS ORDERED: GLUCAGON 1MG KIT 1 MG ML IM PRN (23:00)
[2021-08-16 23:03] LABS: INR 1.31 (0.85-1.15); PROTHROMBIN TIME 13.9 SEC (9.6-11.6)
[2021-08-16 23:05] LABS: PARTIAL THROMBOPLASTIN TIME 24.2 SEC (26.3-35.5)
[2021-08-16 23:13] LABS: HEMOGLOBIN A1C 6.8 % (4.0-6.0)
[2021-08-17 02:05] VITALS: BP 133/91
[2021-08-17] MEDS ORDERED: HYDROXYZINE 25 MG TABLET PO ONE (03:00)
[2021-08-17 03:44] VITALS: BP 128/90
[2021-08-17] MEDS: IPRATROPIUM/ALBUTEROL SULFATE 3 ML SOLUTION IH PRN ×2 (04:16→18:36)
[2021-08-17 04:37] LABS: BASOPHILS % (AUTO) 1.1 % (0.0-5.0); EOSINOPHILS % (AUTO) 0.5 % (0.0-8.0); HEMATOCRIT 34.5 % (42-54); LYMPHOCYTES % (AUTO) 32.8 % (21.0-51.0); MEAN CORPUSCULAR HEMOGLOBIN 28.8 pg (27.0-33.0); MEAN CORPUSCULAR HGB CONC 31.6 g/dL (32.0-36.0); MEAN CORPUSCULAR VOLUME 91.3 fL (79-99); MONOCYTES % (AUTO) 9.1 % (3.0-13.0); PLATELET COUNT (AUTO) 199 K/uL (130-400); RED BLOOD CELL COUNT(AUTO) 3.78 MIL/uL (4.50-6.20); RED CELL DISTRIBUTION WIDTH 17.3 % (11.0-15.5); WHITE BLOOD COUNT (AUTO) 8.1 K/uL (4.8-10.8)
[2021-08-17 04:58] LABS: ALBUMIN 3.2 g/dL (3.5-5.0); CREATININE 1.3 mg/dL (0.5-1.5); MAGNESIUM 2.4 mg/dL (1.80-2.40); POTASSIUM 4.7 mmol/L (3.5-5.1); TOTAL PROTEIN, SERUM 8.5 g/dL (6.0-8.3)
[2021-08-17] MEDS: INSULIN HUMULIN R 100 UNIT/ML 3ML SQ SCH ×3 (05:56→21:00)
[2021-08-17 08:05] VITALS: BP 129/100
[2021-08-17] MEDS ORDERED: 0.9% NACL 250ML IVPB SCH (08:30)
[2021-08-17] MEDS ORDERED: AZITHROMYCIN 500MG VIAL IVPB SCH (08:30)
[2021-08-17] MEDS: FAMOTIDINE 20MG TAB PO SCH ×2 (09:39→20:31)
[2021-08-17] MEDS: FUROSEMIDE 40MG VIAL IV SCH (09:41)
[2021-08-17] MEDS: ENOXAPARIN SODIUM 30 MG/0.3 ML SQ SCH (09:41)
[2021-08-17] MEDS: AZITHROMYCIN 500MG+NS 250ML IV SCH (09:59)
[2021-08-17] MEDS: 0.9% NACL 250ML 250 ML IV SCH (09:59)
[2021-08-17] MEDS ORDERED: MORPHINE 2 MG SYG ONE (10:36)
[2021-08-17] MEDS ORDERED: MORPHINE 2 MG SYG IM SCH (11:00)
[2021-08-17 11:33] VITALS: BP 139/100
[2021-08-17 17:05] VITALS: BP 107/88
[2021-08-17 19:50] VITALS: BP 125/96
[2021-08-18] VITALS (7 sets, daily range): BP systolic 108–136; BP diastolic 56–100
[2021-08-18] MEDS: IPRATROPIUM/ALBUTEROL SULFATE 3 ML SOLUTION IH PRN ×3 (00:25→11:54)
[2021-08-18] MEDS ORDERED: LORAZEPAM 0.5 MG TABLET ONE (01:00)
[2021-08-18] MEDS ORDERED: LORAZEPAM 0.5 MG TABLET PO PRN (01:00)
[2021-08-18 03:45] LABS: MEAN CORPUSCULAR HEMOGLOBIN 28.3 pg (27.0-33.0); MEAN CORPUSCULAR HGB CONC 31.2 g/dL (32.0-36.0); MEAN CORPUSCULAR VOLUME 90.9 fL (79-99); RED BLOOD CELL COUNT(AUTO) 3.74 MIL/uL (4.50-6.20); RED CELL DISTRIBUTION WIDTH 17.5 % (11.0-15.5); WHITE BLOOD COUNT (AUTO) 6.8 K/uL (4.8-10.8)
[2021-08-18 03:49] LABS: CREATININE 1.6 mg/dL (0.5-1.5); POTASSIUM 4.4 mmol/L (3.5-5.1)
[2021-08-18] MEDS: INSULIN HUMULIN R 100 UNIT/ML 3ML SQ SCH ×4 (06:32→20:33)
[2021-08-18] MEDS: ENOXAPARIN SODIUM 30 MG/0.3 ML SQ SCH (09:00)
[2021-08-18] MEDS: 0.9% NACL 250ML 250 ML IV SCH (09:54)
[2021-08-18] MEDS: FUROSEMIDE 40MG VIAL IV SCH ×2 (09:54→20:38)
[2021-08-18] MEDS: AZITHROMYCIN 500MG+NS 250ML IV SCH (09:54)
[2021-08-18] MEDS: FAMOTIDINE 20MG TAB PO SCH ×2 (09:55→20:39)
[2021-08-18] MEDS: SPIRONOLACTONE 25 MG TAB PO SCH (09:55)
[2021-08-18] MEDS: CARVEDILOL 3.125 MG TABLET PO SCH ×2 (09:58→20:38)
[2021-08-18] MEDS: ISOSORBIDE MONO 30MG SR TAB PO SCH (09:58)
[2021-08-18] MEDS ORDERED: HYDRALAZINE 25MG TABLET PO SCH (14:00)
[2021-08-18 15:41] LABS: GLUCOSE,BODY FLUID 135 mg/dL (1-40)
[2021-08-18 15:48] LABS: PH, BODY FLUID 7
[2021-08-18 15:49] LABS: APPEARANCE BODY FLUID CLEAR (CLEAR); BODY FLUID WBC 57 /cu. mm.; COLOR,BODY FLUID YELLOW (LT YELLOW); SPECIMENTYPE,BODY FLUID THORACENTESIS; TOTAL VOLUME,BODY FLUID 1900 mL
[2021-08-18 15:50] LABS: BODY FLUID RBC 47 /cu. mm.
[2021-08-18 16:51] LABS: BF LYMPHOCYTE 71 %; BF MESOTHELIAL 22 %
[2021-08-19 04:04] VITALS: BP 120/76
[2021-08-19 06:41] LABS: BASOPHILS % (AUTO) 0.9 % (0.0-5.0); EOSINOPHILS % (AUTO) 0.6 % (0.0-8.0); HEMATOCRIT 32.9 % (42-54); LYMPHOCYTES % (AUTO) 31.7 % (21.0-51.0); MEAN CORPUSCULAR HEMOGLOBIN 28.8 pg (27.0-33.0); MEAN CORPUSCULAR HGB CONC 31.3 g/dL (32.0-36.0); MEAN CORPUSCULAR VOLUME 91.9 fL (79-99); MONOCYTES % (AUTO) 8.2 % (3.0-13.0); NEUTROPHILS % (AUTO) 58.3 % (40.0-77.0); PLATELET COUNT (AUTO) 159 K/uL (130-400); RED BLOOD CELL COUNT(AUTO) 3.58 MIL/uL (4.50-6.20); RED CELL DISTRIBUTION WIDTH 17.8 % (11.0-15.5); WHITE BLOOD COUNT (AUTO) 6.7 K/uL (4.8-10.8)
[2021-08-19 06:58] LABS: CREATININE 1.6 mg/dL (0.5-1.5); MAGNESIUM 2.2 mg/dL (1.80-2.40); POTASSIUM 4.4 mmol/L (3.5-5.1)
[2021-08-19] MEDS: INSULIN HUMULIN R 100 UNIT/ML 3ML SQ SCH ×4 (07:30→21:04)
[2021-08-19 08:00] VITALS: BP 114/90
[2021-08-19] MEDS ORDERED: TRAZODONE HCL 50 MG TAB PO PRN (09:30)
[2021-08-19] MEDS: CARVEDILOL 3.125 MG TABLET PO SCH ×2 (09:56→21:00)
[2021-08-19] MEDS: ISOSORBIDE MONO 30MG SR TAB PO SCH (09:56)
[2021-08-19] MEDS: SPIRONOLACTONE 25 MG TAB PO SCH (09:56)
[2021-08-19] MEDS: ENOXAPARIN SODIUM 30 MG/0.3 ML SQ SCH (09:57)
[2021-08-19] MEDS: PANTOPRAZOLE 40 MG TAB DR PO SCH (10:23)
[2021-08-19 12:00] VITALS: BP 121/85
[2021-08-19] MEDS: HYDRALAZINE HCL 10 MG TABLET PO SCH ×3 (13:00→20:59)
[2021-08-19 16:00] VITALS: BP 122/89
[2021-08-19] MEDS: FUROSEMIDE 40 MG TABLET PO SCH (16:41)
[2021-08-19 20:00] VITALS: BP 124/82
[2021-08-19] MEDS ORDERED: SENNOSIDES 8.6 MG TABLET PO PRN (20:00)
[2021-08-20] VITALS: BP 105/72
[2021-08-20 04:00] VITALS: BP 111/77
[2021-08-20 05:41] LABS: BASOPHILS % (AUTO) 0.9 % (0.0-5.0); HEMATOCRIT 30.9 % (42-54); LYMPHOCYTES % (AUTO) 27.7 % (21.0-51.0); MEAN CORPUSCULAR HEMOGLOBIN 28.7 pg (27.0-33.0); MEAN CORPUSCULAR HGB CONC 32.4 g/dL (32.0-36.0); MEAN CORPUSCULAR VOLUME 88.5 fL (79-99); MONOCYTES % (AUTO) 7.8 % (3.0-13.0); NEUTROPHILS % (AUTO) 62.4 % (40.0-77.0); PLATELET COUNT (AUTO) 182 K/uL (130-400); RED BLOOD CELL COUNT(AUTO) 3.49 MIL/uL (4.50-6.20); RED CELL DISTRIBUTION WIDTH 17.6 % (11.0-15.5); WHITE BLOOD COUNT (AUTO) 8.1 K/uL (4.8-10.8)
[2021-08-20 06:02] LABS: CREATININE 1.4 mg/dL (0.5-1.5)
[2021-08-20] MEDS: INSULIN HUMULIN R 100 UNIT/ML 3ML SQ SCH ×2 (06:37→11:57)
[2021-08-20] MEDS: PANTOPRAZOLE 40 MG TAB DR PO SCH (06:47)
[2021-08-20 08:00] VITALS: BP 120/86
[2021-08-20] MEDS: SPIRONOLACTONE 25 MG TAB PO SCH (08:40)
[2021-08-20] MEDS: FUROSEMIDE 40 MG TABLET PO SCH (08:41)
[2021-08-20] MEDS: HYDRALAZINE HCL 10 MG TABLET PO SCH ×2 (08:41→13:17)
[2021-08-20] MEDS: CARVEDILOL 3.125 MG TABLET PO SCH (08:42)
[2021-08-20] MEDS: ENOXAPARIN SODIUM 30 MG/0.3 ML SQ SCH (08:42)
[2021-08-20] MEDS: ISOSORBIDE MONO 30MG SR TAB PO SCH (08:42)
[2021-08-20 11:38] VITALS: BP 106/70
[2021-08-20] MEDS ORDERED: HYDR25 PO ×2 (15:54)
== END 2021-08-20 16:30 | disposition home or self-care (01) | DRG 194 ==
LOC: EDH 19:35 → EDHIP 19:36 → 3AH 08-17 00:46
PROVIDERS: ADMIT Hospitalist; ATTEND Hospitalist
PROC: 0W993ZZ Drainage of Right Pleural Cavity, Percutaneous Approach (ICD-10-PCS; principal; 2021-08-18)
DX: I13.0 Hypertensive heart and chronic kidney disease with heart failure and stage 1 through stage 4 chronic kidney disease, or unspecified chronic kidney disease (principal); N17.9 Acute kidney failure, unspecified; E11.22 Type 2 diabetes mellitus with diabetic chronic kidney disease; E87.5 Hyperkalemia; Z99.81 Dependence on supplemental oxygen; Z20.822 Contact with and (suspected) exposure to COVID-19; F41.9 Anxiety disorder, unspecified; J44.9 Chronic obstructive pulmonary disease, unspecified; N18.30 Chronic kidney disease, stage 3 unspecified; I50.43 Acute on chronic combined systolic (congestive) and diastolic (congestive) heart failure; I25.5 Ischemic cardiomyopathy; Z95.810 Presence of automatic (implantable) cardiac defibrillator; Z91.19 Patient's noncompliance with other medical treatment and regimen; Z91.14 Patient's other noncompliance with medication regimen; Z79.899 Other long term (current) drug therapy; Z83.3 Family history of diabetes mellitus; Z82.49 Family history of ischemic heart disease and other diseases of the circulatory system
CPT/HCPCS: 32554; 36415; 71045; 80048; 80053; 82550; 82945; 82948; 83036; 83615; 83735; 83874; 83880; 83986; 84145; 84157; 84484; 85025; 85027; 85378; 85610; 85730; 87040; 87071; 87205; 87486; 87581; 87633; 87635; 87798; 89051; 93005; 93970; 94640; G0378; J0456; J1650; J1815; J1940; J7050

== ENCOUNTER 2021-10-09 06:19 | Inpatient (IN) | payer MEDICAID ==
[~2021-10-09] VITALS: Ht 170.2 cm; Wt 56.6 kg
[2021-10-09 07:20] LABS: BASOPHILS % (AUTO) 0.8 % (0.0-5.0); EOSINOPHILS % (AUTO) 0.3 % (0.0-8.0); HEMATOCRIT 40.9 % (42-54); LYMPHOCYTES % (AUTO) 21.2 % (21.0-51.0); MEAN CORPUSCULAR HEMOGLOBIN 25.6 pg (27.0-33.0); MEAN CORPUSCULAR HGB CONC 29.3 g/dL (32.0-36.0); MEAN CORPUSCULAR VOLUME 87.4 fL (79-99); MONOCYTES % (AUTO) 7.4 % (3.0-13.0); NEUTROPHILS % (AUTO) 70.2 % (40.0-77.0); PLATELET COUNT (AUTO) 174 K/uL (130-400); RED BLOOD CELL COUNT(AUTO) 4.68 MIL/uL (4.50-6.20); RED CELL DISTRIBUTION WIDTH 17.8 % (11.0-15.5); WHITE BLOOD COUNT (AUTO) 7.3 K/uL (4.8-10.8)
[2021-10-09 07:23] LABS: APPEARANCE,URINE Clear (CLEAR); BILIRUBIN,URINE Negative (NEGATIVE); COLOR,URINE Yellow (YELLOW); GLUCOSE, URINE (UA) Negative (NEGATIVE); KETONES,URINE Negative (NEGATIVE); LEUKOCYTE ESTERASE ,URINE Negative (NEGATIVE); NITRATE,URINE Negative (NEGATIVE); OCCULT BLOOD,URINE Negative (NEGATIVE); PROTEIN,URINE POS 2+ mg/dL (NEGATIVE)
[2021-10-09 07:32] LABS: BACTERIA,URINE Rare /HPF (None Seen); RBC,URINE 0-1 /HPF (0-1)
[2021-10-09 07:33] LABS: BILIRUBIN,TOTAL 1.2 mg/dL (0.2-1.0); CREATININE 1.3 mg/dL (0.5-1.5); POTASSIUM 4.3 mmol/L (3.5-5.1); TOTAL PROTEIN, SERUM 8.1 g/dL (6.0-8.3)
[2021-10-09 07:46] LABS: B-TYPE NATRIURETIC PEPTIDE 2210 pg/mL (0-100)
[2021-10-09] MEDS: FUROSEMIDE 20MG VIAL IV SCH (09:21)
[2021-10-09 10:53] LABS: AMPHET/METH SCREEN,URINE NEGATIVE (NEGATIVE); BARBITURATE SCREEN, URINE NEGATIVE (NEGATIVE); BENZODIAZEPINES SCREEN,URINE NEGATIVE (NEGATIVE); CANNABINOID SCREEN,URINE NEGATIVE (NEGATIVE); COCAINE SCREEN,URINE NEGATIVE (NEGATIVE); OPIATE SCREEN,URINE NEGATIVE (NEGATIVE); PHENCYCLIDINE SCREEN,URINE NEGATIVE (NEGATIVE)
[2021-10-09 11:25] LABS: THYROID STIMULATING HORMONE 2.93 uIU/mL (0.36-3.74)
[2021-10-09] MEDS: FUROSEMIDE 40MG VIAL IV SCH ×2 (13:25→22:09)
[2021-10-09 13:26] LABS: CREATININE 1.2 mg/dL (0.5-1.5); POTASSIUM 3.7 mmol/L (3.5-5.1)
[2021-10-09 13:37] LABS: MAGNESIUM 1.9 mg/dL (1.80-2.40)
[2021-10-09] MEDS: HYDRALAZINE HCL 10 MG TABLET PO SCH ×2 (15:03→22:09)
[2021-10-09] MEDS ORDERED: FUROSEMIDE 40MG VIAL IV SCH (17:00)
[2021-10-09] MEDS ORDERED: ALBUMIN (HUMAN) 25% 50 ML IV SCH (21:00)
[2021-10-09] MEDS: CARVEDILOL 3.125 MG TABLET PO SCH (22:09)
[2021-10-10] MEDS: FUROSEMIDE 40MG VIAL IV SCH ×3 (06:00→18:54)
[2021-10-10 06:48] LABS: BASOPHILS % (AUTO) 0.8 % (0.0-5.0); EOSINOPHILS % (AUTO) 0.8 % (0.0-8.0); HEMATOCRIT 36.3 % (42-54); LYMPHOCYTES % (AUTO) 30.6 % (21.0-51.0); MEAN CORPUSCULAR HEMOGLOBIN 25.9 pg (27.0-33.0); MEAN CORPUSCULAR VOLUME 86.2 fL (79-99); MONOCYTES % (AUTO) 9.6 % (3.0-13.0); PLATELET COUNT (AUTO) 155 K/uL (130-400); RED BLOOD CELL COUNT(AUTO) 4.21 MIL/uL (4.50-6.20); RED CELL DISTRIBUTION WIDTH 17.4 % (11.0-15.5); WHITE BLOOD COUNT (AUTO) 5.9 K/uL (4.8-10.8)
[2021-10-10 06:57] LABS: CREATININE 1.3 mg/dL (0.5-1.5); POTASSIUM 3.5 mmol/L (3.5-5.1)
[2021-10-10 07:00] LABS: INR 1.44 (0.85-1.15); PROTHROMBIN TIME 15.2 SEC (9.6-11.6)
[2021-10-10 07:18] LABS: B-TYPE NATRIURETIC PEPTIDE 1520 pg/mL (0-100)
[2021-10-10] MEDS: ASPIRIN 81MG CHEW TAB PO SCH (09:00)
[2021-10-10] MEDS: CARVEDILOL 3.125 MG TABLET PO SCH ×2 (10:00→21:00)
[2021-10-10] MEDS: SPIRONOLACTONE 25 MG TAB PO SCH (10:00)
[2021-10-10] MEDS: HYDRALAZINE HCL 10 MG TABLET PO SCH ×3 (10:00→21:00)
[2021-10-10] MEDS: FUROSEMIDE 20MG VIAL IV SCH (10:00)
[2021-10-10] MEDS ORDERED: ALBUMIN (HUMAN) 25% 50 ML IV ONE ×2 (10:30→11:52)
[2021-10-10 12:13] LABS: ALBUMIN,BODY FLUID 1.3 g/dL; GLUCOSE,BODY FLUID 111 mg/dL (1-40)
[2021-10-10 13:28] LABS: APPEARANCE BODY FLUID CLEAR (CLEAR); BODY FLUID RBC 20 /cu. mm.; BODY FLUID WBC 50 /cu. mm.; COLOR,BODY FLUID YELLOW (LT YELLOW); SPECIMENTYPE,BODY FLUID THORACENTESIS; TOTAL VOLUME,BODY FLUID 1822 mL
[2021-10-10 13:39] LABS: BF LYMPHOCYTE 66 %; BF MESOTHELIAL 32 %; BF MONOCYTE 2 %
[2021-10-10 23:30] VITALS: BP 125/71
[2021-10-11 04:15] VITALS: BP 112/68
[2021-10-11 05:53] LABS: BASOPHILS % (AUTO) 0.5 % (0.0-5.0); EOSINOPHILS % (AUTO) 0.8 % (0.0-8.0); HEMATOCRIT 33.5 % (42-54); LYMPHOCYTES % (AUTO) 32.3 % (21.0-51.0); MEAN CORPUSCULAR HEMOGLOBIN 25.5 pg (27.0-33.0); MEAN CORPUSCULAR VOLUME 82.1 fL (79-99); MONOCYTES % (AUTO) 7.5 % (3.0-13.0); NEUTROPHILS % (AUTO) 58.6 % (40.0-77.0); PLATELET COUNT (AUTO) 152 K/uL (130-400); RED BLOOD CELL COUNT(AUTO) 4.08 MIL/uL (4.50-6.20); RED CELL DISTRIBUTION WIDTH 17.3 % (11.0-15.5); WHITE BLOOD COUNT (AUTO) 6.4 K/uL (4.8-10.8)
[2021-10-11 06:06] LABS: CREATININE 1.3 mg/dL (0.5-1.5); POTASSIUM 3.3 mmol/L (3.5-5.1)
[2021-10-11 08:59] VITALS: BP 121/80
[2021-10-11] MEDS ORDERED: FUROSEMIDE 40MG VIAL IV SCH (09:00)
[2021-10-11] MEDS: SPIRONOLACTONE 25 MG TAB PO SCH (09:50)
[2021-10-11] MEDS: ASPIRIN 81MG CHEW TAB PO SCH (09:50)
[2021-10-11] MEDS: HYDRALAZINE HCL 10 MG TABLET PO SCH ×3 (09:50→20:25)
[2021-10-11] MEDS: CARVEDILOL 3.125 MG TABLET PO SCH ×2 (09:51→20:26)
[2021-10-11 12:57] VITALS: BP 120/70
[2021-10-11] MEDS ORDERED: KCL 20 MEQ ERTAB PO ONE (14:30)
[2021-10-11] MEDS ORDERED: POTASSIUM CHLORIDE 10% ELIXIR 20 MEQ/15 ML UDCUP ONE (14:52)
[2021-10-11] MEDS ORDERED: POTASSIUM CHLORIDE 10% ELIXIR 20 MEQ/15 ML UDCUP PO ONE (15:00)
[2021-10-11 16:30] VITALS: BP 121/74
[2021-10-11] MEDS: FUROSEMIDE 40MG VIAL IV SCH (16:39)
[2021-10-11 19:13] VITALS: BP 126/68
[2021-10-11 23:53] VITALS: BP 103/68
[2021-10-12 04:11] LABS: HEMATOCRIT 33.7 % (42-54); MEAN CORPUSCULAR HEMOGLOBIN 26.1 pg (27.0-33.0); MEAN CORPUSCULAR HGB CONC 30.6 g/dL (32.0-36.0); MEAN CORPUSCULAR VOLUME 85.3 fL (79-99); RED BLOOD CELL COUNT(AUTO) 3.95 MIL/uL (4.50-6.20); RED CELL DISTRIBUTION WIDTH 17.4 % (11.0-15.5); RETICULOCYTE % (AUTO) 1.53 % (0.42-2.23); WHITE BLOOD COUNT (AUTO) 5.8 K/uL (4.8-10.8)
[2021-10-12 04:30] LABS: % IRON SATURATION 7.3 % (30-44)
[2021-10-12 04:40] VITALS: BP 110/57
[2021-10-12] MEDS: FUROSEMIDE 40MG VIAL IV SCH (04:44)
[2021-10-12 04:52] LABS: MAGNESIUM 1.7 mg/dL (1.80-2.40); THYROID STIMULATING HORMONE 3.52 uIU/mL (0.36-3.74)
[2021-10-12 08:37] VITALS: BP 125/77
[2021-10-12] MEDS ORDERED: SPIRONOLACTONE 25 MG TAB PO SCH (09:00)
[2021-10-12] MEDS: HYDRALAZINE HCL 10 MG TABLET PO SCH ×3 (09:34→20:38)
[2021-10-12] MEDS: CARVEDILOL 3.125 MG TABLET PO SCH ×2 (09:35→20:39)
[2021-10-12] MEDS: ASPIRIN 81MG CHEW TAB PO SCH (09:35)
[2021-10-12] MEDS ORDERED: EPOETIN ALFA-EPBX (NON-ESRD) 10,000 UNIT/ML VIAL SQ SCH (10:00)
[2021-10-12] MEDS ORDERED: LISINOPRIL 5 MG TABLET PO SCH (10:00)
[2021-10-12 10:07] LABS: CREATININE 1.5 mg/dL (0.5-1.5); POTASSIUM 4.1 mmol/L (3.5-5.1)
[2021-10-12] MEDS ORDERED: COMPOUND IV MISC 1 EACH IVSOLN MISC PRN (11:30)
[2021-10-12] MEDS: IRON SUCROSE COMPLEX 500 MG in 0.9%NACL 50ML 50 ML IV SCH (12:12)
[2021-10-12 12:38] VITALS: BP 110/65
[2021-10-12 16:30] VITALS: BP 118/74
[2021-10-12 19:13] VITALS: BP 123/79
[2021-10-12 23:49] VITALS: BP 108/65
[2021-10-13 03:19] VITALS: BP 112/74
[2021-10-13 04:04] LABS: HEMATOCRIT 34.1 % (42-54); MEAN CORPUSCULAR HEMOGLOBIN 25.9 pg (27.0-33.0); MEAN CORPUSCULAR HGB CONC 30.8 g/dL (32.0-36.0); MEAN CORPUSCULAR VOLUME 84.2 fL (79-99); RED BLOOD CELL COUNT(AUTO) 4.05 MIL/uL (4.50-6.20); RED CELL DISTRIBUTION WIDTH 17.5 % (11.0-15.5); WHITE BLOOD COUNT (AUTO) 5.7 K/uL (4.8-10.8)
[2021-10-13 04:10] LABS: CREATININE 1.3 mg/dL (0.5-1.5); POTASSIUM 3.7 mmol/L (3.5-5.1)
[2021-10-13 08:30] VITALS: BP 115/74
[2021-10-13] MEDS ORDERED: TORSEMIDE 20 MG TAB PO SCH ×2 (09:00→09:30)
[2021-10-13] MEDS ORDERED: LISINOPRIL 5 MG TABLET PO SCH (09:00)
[2021-10-13] MEDS ORDERED: SPIRONOLACTONE 25 MG TAB PO SCH (09:00)
[2021-10-13] MEDS ORDERED: TORS20TA4 PO (09:07)
[2021-10-13] MEDS ORDERED: LISI10TA24 PO (09:07)
[2021-10-13] MEDS ORDERED: CARV6.2579 PO (09:07)
[2021-10-13] MEDS ORDERED: SPIR25TA6 PO (09:07)
[2021-10-13] MEDS ORDERED: ASPI-1005 PO (09:07)
[2021-10-13] MEDS: ASPIRIN 81MG CHEW TAB PO SCH (10:23)
[2021-10-13] MEDS: CARVEDILOL 3.125 MG TABLET PO SCH (10:24)
[2021-10-13] MEDS: IRON SUCROSE COMPLEX 500 MG in 0.9%NACL 50ML 50 ML IV SCH (10:25)
[2021-10-13 12:59] VITALS: BP 114/73
[2021-10-14] MEDS ORDERED: LISINOPRIL 5 MG TABLET PO SCH (09:00)
== END 2021-10-13 16:00 | disposition home or self-care (01) | DRG 194 ==
LOC: EDH 06:19 → EDHIP 06:20 → UNDOADMIN 09:00 → 2DH 10-10 23:30
PROVIDERS: ADMIT Internal Medicine; ATTEND Internal Medicine
PROC: 5A09357 Assistance with Respiratory Ventilation, Less than 24 Consecutive Hours, Continuous Positive Airway Pressure (ICD-10-PCS; 2021-10-09)
PROC: 0W993ZZ Drainage of Right Pleural Cavity, Percutaneous Approach (ICD-10-PCS; principal; 2021-10-10)
PROC: 5A09357 Assistance with Respiratory Ventilation, Less than 24 Consecutive Hours, Continuous Positive Airway Pressure (ICD-10-PCS; 2021-10-10)
PROC: 5A09357 Assistance with Respiratory Ventilation, Less than 24 Consecutive Hours, Continuous Positive Airway Pressure (ICD-10-PCS; 2021-10-11)
PROC: 5A09357 Assistance with Respiratory Ventilation, Less than 24 Consecutive Hours, Continuous Positive Airway Pressure (ICD-10-PCS; 2021-10-12)
DX: I11.0 Hypertensive heart disease with heart failure (principal); J91.8 Pleural effusion in other conditions classified elsewhere; I50.23 Acute on chronic systolic (congestive) heart failure; E87.1 Hypo-osmolality and hyponatremia; E11.9 Type 2 diabetes mellitus without complications; I25.5 Ischemic cardiomyopathy; I25.10 Atherosclerotic heart disease of native coronary artery without angina pectoris; J93.83 Other pneumothorax; I25.2 Old myocardial infarction; Z90.49 Acquired absence of other specified parts of digestive tract; Z79.899 Other long term (current) drug therapy; Z95.0 Presence of cardiac pacemaker; Z91.14 Patient's other noncompliance with medication regimen; Z91.19 Patient's noncompliance with other medical treatment and regimen; Z83.3 Family history of diabetes mellitus; Z82.49 Family history of ischemic heart disease and other diseases of the circulatory system
CPT/HCPCS: 36415; 71045; 74176; 76705; 80048; 80053; 80305; 81001; 82042; 82550; 82607; 82728; 82746; 82945; 82948; 83540; 83550; 83605; 83615; 83735; 83880; 83986; 84145; 84157; 84443; 84484; 85025; 85027; 85045; 85610; 85730; 87071; 87205; 88112; 88305; 89051; 93005; 94660; G0378; J1756; J1940; P9047

== ENCOUNTER → 2022-04-20 | Outpatient (CLI) | payer MEDICAID ==
[~2022-04-20] MED LIST changes: +ASPI-1005 PO; -FURO40TA7 PO; -HYDR25 PO; +LISI10TA24 PO; +TORS20TA4 PO
== END | disposition home or self-care (01) ==
LOC: SHCH 08:37
PROVIDERS: ATTEND Student in an Organized Health Care Education/Training Program
DX: I34.0 Nonrheumatic mitral (valve) insufficiency (principal); I50.9 Heart failure, unspecified; I25.10 Atherosclerotic heart disease of native coronary artery without angina pectoris; J44.9 Chronic obstructive pulmonary disease, unspecified; Z95.0 Presence of cardiac pacemaker
CPT/HCPCS: 93306